=== PATIENT | female | born 1970 ===

== ENCOUNTER 2020-06-13 19:38 | Outpatient (REF) | payer OTHER, SELFPAY ==
[2020-06-13 20:53] LABS: Abs Immature Grans 0.04 10^3/uL (0.0-0.06); Absolute Basophil Count 0.06 10^3/uL (0.0-0.2); Absolute Eosinophil Count 0.37 10^3/uL (0.0-0.7); Absolute Lymphocyte Count 1.96 10^3/uL (1.2-3.4); Absolute Monocyte Count 0.53 10^3/uL (0.1-0.8); Absolute Neutrophil Count 4.12 10^3/uL (1.2-6.7); Basophils % 0.8; Eosinophils % 5.2; HCT 44.1 % (36.0-46.0); HGB 14.2 g/dL (11.2-15.7); Immature Grans % 0.6; Lymphocytes % 27.7; MCH 30.5 pg (27.0-33.0); MCHC 32.2 % (32.0-36.0); MCV 94.6 fL (80-95); MPV 9.7 fL (8.0-11.0); Monocytes % 7.5; Neutrophils % 58.2; Nucleated RBC 0 %; Platelet Count 208 10^3/uL (130-400); RBC 4.66 10^6/uL (3.93-5.22); RDW 13.2 % (11.7-14.6); RDW-SD 46.2 fL; WBC 7.08 10^3/uL (4.4-10.8)
[2020-06-13 21:02] LABS: Anion Gap 7.7 mmol/L (3-11); BUN 22 mg/dL (7-18); CO2 24.3 mmol/L (21.0-32.0); CREATININE 0.64 mg/dL (0.55-1.02); Calcium 8.6 mg/dL (8.5-10.1); Chloride 105 mmol/L (98-107); Glucose 92 mg/dL (74-106); Potassium 4.1 mmol/L (3.5-5.1); Sodium 137 mmol/L (136-145)
== END 2020-06-13 19:58 ==
LOC: NCHCN 19:38
PROVIDERS: PCP Nurse Practitioner Family; Visit Provider Nurse Practitioner Family
DX: Z01.818 Encounter for other preprocedural examination (principal)
CPT/HCPCS: 80048; 85025

== ENCOUNTER 2021-01-31 21:28 | Outpatient (REF) | payer SELFPAY ==
[2021-01-31 22:10] LABS: Anion Gap 8.4 mmol/L (3-11); BUN 16 mg/dL (7-18); CO2 29.6 mmol/L (21.0-32.0); CREATININE 0.8 mg/dL (0.55-1.02); Calcium 9.1 mg/dL (8.5-10.1); Calculated LDL 207 mg/dL (<100); Chloride 103 mmol/L (98-107); Cholesterol 311 mg/dL (<200); Glucose 94 mg/dL (74-106); HDL Cholesterol 69 mg/dL (40-60); Potassium 4.1 mmol/L (3.5-5.1); Sodium 141 mmol/L (136-145); Triglyceride 176 mg/dL (<150)
[2021-01-31 22:37] LABS: COMMENT (LAB VIEW ONLY) 43.03 mg/dL; PROTEIN < 6.0 mg/dL
[2021-02-02 09:23] LABS: HBs Antibody, Quant <3.1 mIU/mL (See Note); Hepatitis B Surface Ab Negative (See Note)
[2021-02-02 10:09] LABS: HIV-1/2 Ag & Ab Screen Negative (Negative); Hep A Total Ab w Rflx IgM Negative (Negative)
[2021-02-02 10:20] LABS: Hepatitis C Ab w Rflx HCV PCR Negative (Negative)
== END 2021-01-31 21:29 | disposition home or self-care (01) ==
LOC: NCHCN 21:28
PROVIDERS: PCP Nurse Practitioner Family; Visit Provider Nurse Practitioner Family
DX: I10 Essential (primary) hypertension (principal); E66.9 Obesity, unspecified; Z98.890 Other specified postprocedural states; Z11.4 Encounter for screening for human immunodeficiency virus [HIV]; Z11.59 Encounter for screening for other viral diseases
CPT/HCPCS: 80048; 80061; 86706; 86709; 86803; 87389; 82565; 84156

== ENCOUNTER 2022-06-12 09:56 | Outpatient (CLI) | payer OTHER, SELFPAY ==
--- NOTE | 2022-06-12 06:00 | DI.RAD_ITS ---
Exam(s) XR PAIN CLINIC LUMBAR SP 2V EXAM: XR PAIN CLINIC LUMBAR SP 2V CLINICAL HISTORY: Dx: Lumbar Radiculopathy TECHNIQUE: 2D and realtime digital imaging was performed. COMPARISON: No exams were available for comparison FINDINGS: C-arm fluoroscopy was utilized by Dr. Caba during reported lumbar epidural injection. Hard copy show s epidural injection in the midline at the L4-5 level. IMPRESSION: RADIATION DOSE DELIVERED: Ever=19.28 mGy
[2022-06-12 10:44] VITALS: BP 139/99; PULSE 89; RESP 20; TEMP 36.9; O2SAT 95
[2022-06-12 11:50] VITALS: BP 133/92; PULSE 85; RESP 18; O2SAT 97
[2022-06-12] MEDS: Omnipaque 240 MG/ML 50 ML BTL IJ (13:12)
[2022-06-12] MEDS: methylPREDNISolone ACETATE 80 MG/ML VIAL IJ (13:12)
--- NOTE | 2022-06-12 14:40 | PDOC.PAIN ---
Date of service: 06/12/22 Time of Service: 14:47 Pain Clinic Procedure Note Procedure Note Procedure Note: CAUDAL EPIDURAL STEROID WITH CATHETER INJECTION PROCEDURE NOTE COMMENTS: She has had lumbar spine surgery and this is why I am using the caudal approach. Pre-procedure pain VAS was 8/10. Dx: Lumbosacral radiculopathy Yee Bishop has been referred to the [facility] for lumbar epidural steroid injection. Patient was greeted by the nurse who verified the patient?s name and .? Patient was then taken to the fluoroscopy suite. The patient was interviewed and the medical record was reviewed.? There were no medical, pharmacologic, radiographic, or other structural contraindications to attempting fluoroscopically guided caudal epidural steroid injection. Risks and expected side effects as well as potential benefits of the procedure were reviewed and voiced concerns addressed.? The patient consent form was signed.? Standard time-out procedure was performed. The patient was placed in the prone position on the fluoroscopy table and automated blood pressure cuff, pulse oximeter, and 3 lead EKG was applied.? The skin entry point for entering/approaching the sacral hiatus was marked.? Following thorough chlorhexadine preparation of the skin and draping and 1% lidocaine infiltration of the skin entry point and subcutaneous tissues, a 17 gauge Touhy needle was placed under fluoroscopic guidance through the sacral hiatus.? Needle tip placement and depth were aided and confirmed by fluoroscopy. There was no paresthesia or return of blood or CSF through the needle. A 19G Arrow spinal catheter was threaded to the [] height and 1 cc's of Omnipaque 240 was injected with clear epidural spread confirmed with fluoroscopy.? Aspiration was performed with no resulting blood or clear fluid. One cc of depomedrol (80 mg/cc) was injected.? This was followed by 2 cc of 1% Lidocaine to flush the catheter.?There was not any unusual discomfort expressed.? The needle and catheter were removed together without difficulty. Vital signs were stable throughout the procedure and were as recorded in nursing records.? Follow up plans and appointments were discussed.? Post procedure instruction was given as documented in nursing records and having met discharge criteria and was discharged from the [facility]. Comments: On my first attempt, the contrast was noted to be intra-thecal. I retracted the needle and the catheter and utilized a alternate approach with a new catheter. This time the contrast pattern was epidural. I did show the patient the images revealing the different paterns. The patient had no numbness or tingling to the bilateral lower extremities after the procedure. We will watch for the unlikely post-dural puncture headache. Post-procedure pain VAS was 1/10. Apolinar Caba DO, MPH [facility]
== END 2022-06-12 09:57 | disposition home or self-care (01) ==
PROVIDERS: PCP Nurse Practitioner Family; Visit Provider Preventive Medicine Occupational Medicine
DX: M54.17 Radiculopathy, lumbosacral region (principal)
CPT/HCPCS: 62323; 72100; J1040; Q9967